=== PATIENT | female | born 1970 | race Caucasian/White ===

== ENCOUNTER 2022-03-10 14:52 | Inpatient (IN) | payer BC ==
[~2022-03-10] VITALS: Ht 167.6 cm; Wt 81.0 kg
[2022-03-10 17:30] VITALS: BP 154/72
[2022-03-10] MEDS ORDERED: ONDANSETRON 4MG 2ML VIAL IV PRN (18:20)
[2022-03-10] MEDS ORDERED: MOM 30ML SUSPENSION UDC PO PRN (18:20)
[2022-03-10] MEDS ORDERED: MAALOX 30 ML SUSP *UDC PO PRN (18:20)
[2022-03-10] MEDS ORDERED: MORPHINE 2 MG/ML 1ML VIAL IV PRN (18:20)
[2022-03-10] MEDS ORDERED: LORazepam 2 MG/ML VIAL IV PRN (18:20)
[2022-03-10] MEDS: NS 1,000 ML IV SCH (18:52)
[2022-03-10 19:08] LABS: HEMATOCRIT 40.4 % (36.0-47.0); HEMOGLOBIN 13.3 g/dl (12.0-15.5); MEAN CORPUSCULAR HEMOGLOBIN 30.2 pg (27.0-33.0); MEAN CORPUSCULAR HGB CONC 32.9 g/dl (32.0-36.5); MEAN CORPUSCULAR VOLUME 91.6 fl (80.0-96.0); PLATELET COUNT, AUTOMATED 283 10^3/uL (150-450); RED BLOOD COUNT 4.41 10^6/uL (4.00-5.40); WHITE BLOOD COUNT 10.6 10^3/uL (4.0-10.0)
[2022-03-10] MEDS ORDERED: LEVO112T2 PO (19:08)
[2022-03-10] MEDS ORDERED: HOME MED LIST COMPLETE! XX SCH (19:10)
[2022-03-10 19:29] LABS: ALBUMIN 3.9 GM/DL (3.2-5.2); ALT/SGPT 19 U/L (12-78); BILIRUBIN,TOTAL 0.4 MG/DL (0.2-1.0); BLOOD UREA NITROGEN 10 MG/DL (7-18); CALCIUM LEVEL 9.4 MG/DL (8.5-10.1); CARBON DIOXIDE LEVEL 27 MEQ/L (21-32); CHLORIDE LEVEL 113 MEQ/L (98-107); CREATININE FOR GFR 0.69 MG/DL (0.55-1.30); GLOMERULAR FILTRATION RATE > 60.0 (>51); GLUCOSE, FASTING 93 MG/DL (70-100); LIPASE 115 U/L (73-393); POTASSIUM SERUM 4.3 MEQ/L (3.5-5.1); SODIUM LEVEL 145 MEQ/L (136-145); TOTAL PROTEIN 6.6 GM/DL (6.4-8.2)
[2022-03-10] MEDS: ACETAMINOPHEN TAB 650MG DOSE (2X325MG) PO PRN (19:32)
[2022-03-10 21:24] VITALS: BP 138/89
[2022-03-10] MEDS: PIPERACILLIN/TAZOBACTAM SOD 3.375 GM in D5W MINI-BAG PLUS 50 ML IV SCH (22:04)
[2022-03-11] MEDS: PIPERACILLIN/TAZOBACTAM SOD 3.375 GM in D5W MINI-BAG PLUS 50 ML IV SCH ×2 (02:51→08:22)
[2022-03-11 05:26] VITALS: BP 148/84
[2022-03-11] MEDS: ACETAMINOPHEN TAB 650MG DOSE (2X325MG) PO PRN (05:28)
[2022-03-11 06:18] LABS: BASO % 0.5 % (0.0-1.0); EOS # 0.1 10^3/uL (0.0-0.5); EOS % 1.6 % (0.0-3.0); HEMATOCRIT 40.4 % (36.0-47.0); HEMOGLOBIN 13.1 g/dl (12.0-15.5); LYMPH % 37.6 % (24.0-44.0); MEAN CORPUSCULAR HEMOGLOBIN 29.4 pg (27.0-33.0); MEAN CORPUSCULAR HGB CONC 32.4 g/dl (32.0-36.5); MEAN CORPUSCULAR VOLUME 90.6 fl (80.0-96.0); MONO # 0.6 10^3/uL (0.0-0.8); MONO % 7.5 % (2.0-8.0); NEUTROPHILS # 4.2 10^3/uL (1.5-8.5); NEUTROPHILS % 52.7 % (36.0-66.0); PLATELET COUNT, AUTOMATED 286 10^3/uL (150-450); RED BLOOD COUNT 4.46 10^6/uL (4.00-5.40)
[2022-03-11 06:46] LABS: ALBUMIN 3.5 GM/DL (3.2-5.2); ALT/SGPT 14 U/L (12-78); BILIRUBIN,TOTAL 0.6 MG/DL (0.2-1.0); BLOOD UREA NITROGEN 12 MG/DL (7-18); CALCIUM LEVEL 9.3 MG/DL (8.5-10.1); CARBON DIOXIDE LEVEL 26 MEQ/L (21-32); CHLORIDE LEVEL 113 MEQ/L (98-107); CREATININE FOR GFR 0.72 MG/DL (0.55-1.30); GLOMERULAR FILTRATION RATE > 60.0 (>51); GLUCOSE, FASTING 82 MG/DL (70-100); MAGNESIUM LEVEL 2.1 MG/DL (1.8-2.4); POTASSIUM SERUM 3.9 MEQ/L (3.5-5.1); SODIUM LEVEL 145 MEQ/L (136-145); TOTAL PROTEIN 5.9 GM/DL (6.4-8.2)
[2022-03-11] MEDS: NS 1,000 ML IV SCH (08:23)
[2022-03-11] MEDS ORDERED: AUGMENTIN 875 MG TAB PO SCH (09:00)
[2022-03-11] MEDS ORDERED: ENOXAPARIN 40MG/0.4ML SYRINGE (J1650 PER 10MG) SC SCH (09:00)
[2022-03-11] MEDS ORDERED: NICOTINE 7 MG/24 HR TRANSDERMAL TD SCH (09:00)
[2022-03-11 14:00] VITALS: BP 140/78
[2022-03-11] MEDS ORDERED: METR-265 PO (16:34)
[2022-03-11] MEDS ORDERED: CIPR-249 PO (16:34)
[2022-03-11] MEDS ORDERED: CIPROFLOXACIN 500MG TABLET PO SCH (18:00)
[2022-03-11] MEDS ORDERED: metroNIDAZOLE (FLAGYL) 500MG TABLET PO SCH (21:00)
== END 2022-03-11 18:25 | disposition home or self-care (01) ==
LOC: M MSPAV 14:52
PROVIDERS: ADMIT Internal Medicine; ATTEND Internal Medicine
DX: K80.00 Calculus of gallbladder with acute cholecystitis without obstruction (principal); E03.9 Hypothyroidism, unspecified; F17.210 Nicotine dependence, cigarettes, uncomplicated; Z90.79 Acquired absence of other genital organ(s); Z88.1 Allergy status to other antibiotic agents; Z91.030 Bee allergy status

== ENCOUNTER 2022-05-26 06:15 | Day surgery (SDC) | payer BC ==
[~2022-05-26] VITALS: Ht 167.6 cm; Wt 78.5 kg
[~2022-05-26 06:15] MED LIST: CIPR-249 PO; IBUP200C25 PO; LEVO112T2 PO; METR-265 PO; VITA100T59 PO; VITMTA PO
[2022-05-26] MEDS ORDERED: LR 1,000 ML IV SCH ×2 (06:45→08:30)
[2022-05-26] MEDS ORDERED: BUPIVACAINE/EPIN 0.25% 30 ML VIAL As Ordered ONE (07:15)
[2022-05-26] MEDS ORDERED: propofoL 200 MG/20 ML VIAL As Ordered ONE (07:22)
[2022-05-26] MEDS ORDERED: LIDOCAINE 2% 100MG/5ML SDV (FOR ANES.) As Ordered ONE (07:22)
[2022-05-26] MEDS ORDERED: ROCURONIUM BROMIDE 50 MG/5 ML VIAL As Ordered ONE (07:22)
[2022-05-26] MEDS ORDERED: MIDAZOLAM INJ 2MG/2ML VIAL (J2250 PER 1MG) As Ordered ONE (07:23)
[2022-05-26] MEDS ORDERED: fentaNYL 250 MCG/5 ML INJECTION As Ordered ONE (07:23)
[2022-05-26] MEDS ORDERED: ACETAMINOPHEN 1000MG 100ML IV BTL (OFIRMEV) (J0131 PER 10MG) As Ordered ONE (08:01)
[2022-05-26] MEDS ORDERED: dexameTHASONE 4 MG/ML 1ML VIAL (J1100 PER 1MG) As Ordered ONE (08:01)
[2022-05-26] MEDS ORDERED: ONDANSETRON 4MG 2ML VIAL As Ordered ONE (08:01)
[2022-05-26] MEDS ORDERED: KETOROLAC 60MG 2ML VIAL As Ordered ONE (08:01)
[2022-05-26] MEDS ORDERED: SUGAMMADEX SODIUM 500 MG/5 ML VIAL (BRIDION) As Ordered ONE (08:04)
[2022-05-26] MEDS ORDERED: oxyCODONE 5MG TAB PO PRN (08:30)
[2022-05-26] MEDS ORDERED: fentaNYL 100 MCG/2 ML INJECTION IV PRN (08:30)
[2022-05-26] MEDS ORDERED: ONDANSETRON 4MG 2ML VIAL IV PRN (08:30)
[2022-05-26] MEDS ORDERED: MORPHINE 2 MG/ML 1ML VIAL IV PRN (08:30)
[2022-05-26 10:30] VITALS: BP 135/70
[2022-05-26] MEDS ORDERED: NORCO, ANEXSIA 5/325MG TABLET (HYDROcodone/ACETAMINOPHEN) PO PRN (10:31)
== END 2022-05-26 10:38 | disposition home or self-care (01) ==
LOC: M SDC 06:15
PROVIDERS: ATTEND Surgery
DX: K80.10 Calculus of gallbladder with chronic cholecystitis without obstruction (principal); E78.5 Hyperlipidemia, unspecified; E03.9 Hypothyroidism, unspecified; R51.9 Headache, unspecified; Z79.899 Other long term (current) drug therapy; F17.210 Nicotine dependence, cigarettes, uncomplicated; Z91.030 Bee allergy status; Z88.1 Allergy status to other antibiotic agents
CPT/HCPCS: 47562; 88304; 93005; J0131; J1100; J1885; J2250; J2405; J3010; S2900